=== PATIENT | male | born 1955 | race African-American/Black ===

== ENCOUNTER 2024-03-08 16:47 | Emergency (ER) | payer OTHER, SELFPAY ==
--- NOTE | ~2024-03-08 | CT_ITS ---
CLINICAL HISTORY: left flank pain CT abdomen and pelvis without contrast Comparison: CT/CA/SR - ABD PELVIS WO CONT [id number] - 07/21/19 11:48 EDT Findings: The lung bases are clear. Left parapelvic renal cysts. Cholecystectomy. Abdominal solid organs otherwise unremarkable. No urolithiasis. No bowel obstruction, pneumoperitoneum, or pneumatosis. Moderate stool. Normal appendix. No acute fracture. Degenerative changes at L4-5 results in severe spinal canal stenosis and moderate to severe bilateral foraminal stenosis. IMPRESSION: No acute findings. This document has been electronically signed by: Luis Hicks MD on 03/08/2024 21:24:30
[2024-03-08 16:55] VITALS: BP 177/82; PULSE 75; RESP 16; TEMP 36.6; O2SAT 100; BMI 31.9
--- NOTE | 2024-03-08 16:56 | ED_ITS ---
HPI - General Adult General Chief complaint: Abdominal Pain Stated complaint: Left side pain Time Seen by Provider: 03/08/24 19:59 Source: patient Limitations: no limitations History of Present Illness ED Provider: Brittany Cameron PA-C HPI narrative: 69-year-old otherwise healthy male presents with left flank pain x1 week. Pain originates over left lower flank and low back and radiates around to left lower quadrant and groin region. Pain describes as cramping the fluctuates in intensity. Pain worse with movement. Denies dysuria, hematuria or history of kidney stones. Denies diarrhea nausea vomiting. Denies radiation pain down the lower extremity, weakness of lower extremity, paresthesia, urinary retention or bowel incontinence. Related Data Previous Rx's ?Medication ?Instructions ?Recorded meloxicam 15 mg tablet 15 mg PO DAILY #7 tabs 03/08/24 Allergies Allergy/AdvReac Type Severity Reaction Status Date / Time No Known Allergies Allergy Verified 03/08/24 16:57 [No Known Allergies*] Review of Systems 2 Review of Systems: Yes all other systems are reviewed and are negative Constitutional: Constitutional: Denies fatigue and Denies fever(s) Cardiovascular: Cardiovascular: Denies chest pain and Denies dyspnea Respiratory: Respiratory: Denies cough and Denies dyspnea Gastrointestinal: Gastrointestinal: Reports abdominal pain, Reports GI cramping, Denies diarrhea, Denies nausea and Denies vomiting Genitourinary: Genitourinary: Denies hematuria, Denies dysuria and Reports flank pain Musculoskeletal: Musculoskeletal: Reports back pain, Denies numbness, Denies radiating pain into limb and Denies tingling Neurologic: Denies numbness and Denies tingling Endocrine: Endocrine: Denies fatigue [facility] Past Medical History Attestation statement: The following information was validated with the patient. Social History Social History Advance Directives: No Advance Directives Information Provided: Yes Physical Exam ED Vital Signs: Vital Signs - 24 hr 03/08/24 16:55 03/08/24 20:43 Temperature 97.9 F 97.9 F Pulse Rate 75 59 Respiratory Rate 16 18 Blood Pressure 177/82 H 174/85 H Pulse Oximetry 100 97 Oxygen Delivery Method Room Air Room Air BMI result Body Mass Index 31.9 Const Other: Alert well-appearing Orientation/consciousness: patient oriented x3 Resp Effort & Inspection: normal respiratory effort Cardio Other: Normal peripheral perfusion GI Other: Abdomen is soft, nondistended nontender no guarding, very mild tenderness elicited with deep palpation within left groin Back/Spine/Pelvis Other: No CVA tenderness Skin Other: Warm dry no rash Neuro General: patient oriented x3, gait normal, no focal motor deficits and CN's II- XI intact bilaterally Extrem Other: Strength 5/5 bilateral lower extremities with resistance Psych Other: Cooperative Course Course Course Narrative: RME, this is a rapid medical exam performed by Anthony Loomis please refer to primary provider for complete H&P- 69-year-old male presents for evaluation of left lower abdominal pain. He denies associated symptoms with the exception of intermittent diarrhea. Denies any blood in the stool. Plan for labs and urinalysis Medications Administered Discontinued Medications Generic Name Dose Route Start Last Admin Trade Name Freq PRN Reason Stop Dose Admin Ketorolac Tromethamine 15 mg 03/08/24 20:38 03/08/24 21:28 Ketorolac Tromethamine 15 Mg/Ml Vial IM 03/08/24 20:39 15 mg ONCE ONE Administration Medical Decision Making Medical Decision Making [facility] Narrative: 69-year-old otherwise healthy male presents with left flank pain x1 week. Pain originates over left lower flank and low back and radiates around to left lower quadrant and groin region. Pain describes as cramping the fluctuates in intensity. Pain worse with movement. Denies dysuria, hematuria or history of kidney stones. Denies diarrhea nausea vomiting. Denies radiation pain down the lower extremity, weakness of lower extremity, paresthesia, urinary retention or bowel incontinence. No known chronic issues History: Per patient I have considered the following differential diagnoses: Renal colic, pyelonephritis, UTI, diverticulitis, low back strain, cauda equina Plan: Given distribution of discomfort, it is suspicious the patient could be passing a kidney stone. It is odd that he has no active symptoms. Urine just was collected, obtaining a CT scan giving Toradol. Given pain worse with movement, I am considering low back strain without radicular symptoms. To note he has no red flag signs symptoms concerning for cord compression. Thought about pyelonephritis, however no CVA tenderness, he is afebrile and he has no related symptoms. Thought about diverticulitis, however he has no active GI symptoms, his exam was overall benign. I have independently reviewed the following tests: Labs: No leukocytosis, not anemic, no electrolyte abnormality, urine not infected CT abdomen and pelvis:Normal appendix. No acute fracture. Degenerative changes at L4-5 results in severe spinal canal stenosis and moderate to severe bilateral foraminal stenosis. IMPRESSION: No acute findings. This document has been electronically signed by: Luis Hicks MD on 03/08/2024 21:24:30 Lab Data 03/08/24 17:08 03/08/24 17:08 Labs: Lab Results 03/08/24 03/08/24 Range/Units 17:08 20:27 WBC 6.7 (4.8-10.8) X10*3/uL RBC 6.16 H (4.60-5.80) X10*6/uL Hgb 13.9 L (14.0-18.0) g/dl Hct 44.2 (42.0-52.0) % MCV 71.8 L (80.0-98.0) fL MCH 22.6 L (27.0-33.0) pg MCHC 31.4 (31.0-36.0) g/dl RDW 15.4 (11.0-16.0) % Plt Count 322 (160-400) X10*3/uL MPV 9.0 L (9.4-12.4) fL Immature Gran % (Auto) 0.1 (0.0-0.4) % Neut % (Auto) 38.8 L (45-73) % Lymph % (Auto) 42.3 H (20-40) % [place] % (Auto) 15.4 H (2-11) % Eos % (Auto) 2.7 (0-4) % Baso % (Auto) 0.7 (0-2) % Lymph # (Auto) 2.8 (1.2-4.9) X10*3/uL [place] # (Auto) 1.0 (0.1-1.2) X10*3/uL Eos # (Auto) 0.2 (0.0-0.4) X10*3/uL Baso # (Auto) 0.1 (0.0-0.2) X10*3/uL Abs Immat Gran (auto) 0.01 (0.00-0.03) X10*3/uL Absolute Neuts (auto) 2.6 (2.0-8.3) x10*3/uL Absolute Nucleated RBC 0.000 (0.0-0.012) X10*3/uL Nucleated RBC % (auto) 0.0 (0.0-0.2) /100WBC Sodium 140 (135-145) mmol/L Potassium 4.0 (3.3-5.1) mmol/L Chloride 107 (96-108) mmol/L Carbon Dioxide 26 (22-29) mmol/L Anion Gap 11 L (12-20) BUN 20 H (9-16) mg/dL Creatinine 1.38 (0.5-1.4) mg/dL Estim Creat Clear Calc 69.2 Estimated GFR 51 Random Glucose 86 (60-115) mg/dL Calcium 9.3 (8.4-10.2) mg/dL Total Bilirubin 0.6 (0.0-1.0) mg/dL AST 28 (5-37) U/L ALT 21 (0-40) U/L Alkaline Phosphatase 58 (39-117) U/L Total Protein 8.0 (6.5-8.0) g/dL Albumin 4.0 (3.5-5.0) g/dL Lipase 26 (8-78) U/L Urine Color Yellow Urine Appearance Clear Urine pH 5.5 (5.0-9.0) Ur Specific [place] 1.020 (1.005-1.025) Urine Protein Negative (Neg-Trace) mg/dL Urine Glucose (UA) Negative (Negative) mg/dL Urine Ketones Negative (Negative) mg/dL Urine Blood Negative (Negative) Urine Nitrite Negative (Negative) Ur Leukocyte Esterase Negative (Negative) Urine RBC 0-2 (0-2) /HPF Urine WBC 0-5 (0-5) /HPF Ur Squamous Epith Cells 0-2 (0-2) /HPF Urine Bacteria None Seen (None Seen) Hyaline Casts 0-2 (0-2) /LPF Discharge Plan Discharge Clinical Impression: Lumbar strain, Constipation Patient Disposition: Home, Self-Care Instructions: Constipation (ED), Low Back Strain (ED), Lower Back Exercises (ED) Additional Instructions: All of your screening labs were normal, the CT scan revealed that you have degenerative changes in your lower back, with some nerve root impingement. You were incidentally found to be constipated. See home care instructions. You can use post-auw-svnruzj Colace, this is a stool softener. You can also use brug-qke-xxnrwub MiraLax, 1 to 2 times a day, until you begin having regular bowel movements. Use the meloxicam as needed for your back discomfort. Follow up with your primary care provider as needed. Prescriptions: New meloxicam 15 mg tablet 15 mg PO DAILY Qty: 7 0RF Print Language: Cymro
[2024-03-08 17:11] LABS: MANUAL DIFF FLAG NO
[2024-03-08 17:16] LABS: Basophils Absolute Auto 0.1 X10*3/uL (0.0-0.2); Basophils Percent Auto 0.7 % (0-2); Eosinophils Absolute Auto 0.2 X10*3/uL (0.0-0.4); Eosinophils Percent Auto 2.7 % (0-4); Hematocrit 44.2 % (42.0-52.0); Hemoglobin 13.9 g/dl (14.0-18.0); Imm Gran Abs Auto 0.01 X10*3/uL (0.00-0.03); Imm Gran Pct Auto 0.1 % (0.0-0.4); Lymphocytes Absolute Auto 2.8 X10*3/uL (1.2-4.9); Lymphocytes Percent Auto 42.3 % (20-40); Mean Corpuscular HGB Conc 31.4 g/dl (31.0-36.0); Mean Corpuscular Hemoglobin 22.6 pg (27.0-33.0); Mean Corpuscular Volume 71.8 fL (80.0-98.0); Monocytes Percent Auto 15.4 % (2-11); Neutrophils Absolute Auto 2.6 x10*3/uL (2.0-8.3); Neutrophils Percent Auto 38.8 % (45-73); Platelet Count 322 X10*3/uL (160-400); Red Blood Count 6.16 X10*6/uL (4.60-5.80); Red Cell Distribution Width 15.4 % (11.0-16.0); White Blood Count 6.7 X10*3/uL (4.8-10.8)
[2024-03-08 17:43] LABS: Alanine Aminotransferase 21 U/L (0-40); Anion Gap 11 (12-20); Aspartate Amino Transferase 28 U/L (5-37); Bilirubin Total 0.6 mg/dL (0.0-1.0); Blood Urea Nitrogen 20 mg/dL (9-16); Calcium 9.3 mg/dL (8.4-10.2); Carbon Dioxide 26 mmol/L (22-29); Chloride 107 mmol/L (96-108); Creatinine Clr Calc Pharmacy 69.2; Estimated Glomerular Filt Rate 51; Glucose Random 86 mg/dL (60-115); Lipase 26 U/L (8-78); Sodium 140 mmol/L (135-145)
[2024-03-08 17:55] LABS: Alkaline Phosphatase 58 U/L (39-117)
--- OUTSIDE RECORDS SUMMARY | 2024-03-08 20:03 | XMS_ITS | Encounter Summary ---
Author Organization [facility] Address [address] [place] [address] Care Team Providers Care Textile Broker Name Role Phone Ken Mann MD Primary Care Provider [phone] Reason for Visit * Reason Onset Date Comments Flank Pain 03/08/2024 Encounter Details Date Type Department Care Team (Late st Contact Info) Description 03/08/2024 [facility] [address] [place] [address] Ken Mann MD [address] [place] [id number] Flank Pain Social History Tobacco Use Types Packs/Day Years Used Date Smoking Tobacco: Never Smokeless Tobacco: Never Alcohol Use Standard Drinks/Week Comments Yes 0 (1 standard drink = 0.6 oz pur e alcohol) Sex and Gender Information Value Date Recorded Sex Assigned at Not on file Gender Identity Not on file Sexual Orientation Not on file documented as of this encounter Progress Notes * Irena Rodgers RN - 03/08/2024 1:35 PM EST Spoke with pt he is c/o pain/discomfort/ left side of abd. x 1 week, area belly button and left hip.,pt describe pain as annoying, it is worse with sitting down. Area is tender to touch, no black or bloody stools. Pt c/o of having constipation at times no straining, have normal BM past couple of days, no fever or chills, no urinary sx, no blood in urine, stream of urine no change. Advised pt he needs to go to the ER for eval of sx, pt agrees and will go [facility] and advised to f/u after seen, pt agrees. * Lizy Jaimes - 03/08/2024 1:13 PM EST Patient call requires triage: Symptoms patient is presenting: left side pain, burning stabbing pain How long has patient had these symptoms?: 1 week For ALL patients calling to schedule any appointment (routine, sick visit, follow up, consult, etc.) in the outpatient setting please ask the following questions: Do you have fever of higher than 101, sore throat with difficulty swallowing or severe shortness ofbreath? no If YES to any of these above symptoms, send a message to triage and do not book. Red dot. If no, an audio or video visit should be booked. Have you had close contact with someone with Coronavirus in the last 14 days? no Have you traveled abroad? no Have you traveled recently to another state outside of [place], [place], [place], [place], [place], [place], [place]? no o If yes, did you quarantine for 14 days or have a negative covid test? no If yes to any of the above, patient is not to be scheduled in office until after 14 day quarantine or negative covid test. If pain or injury related was it due to an accident at work or from a motor vehicle accident? If yes, date of accident/Injury: No If yes, gather 3rd green party insurance information Third Democrat Information: not applicable PCP: Ken Mann MD Payor: / No coverage found. documented in this encounter Plan of Treatment Upcoming Encounters Date Type Department Care Team (Late st Contact Info) Description 09/04/2024 2:15 PM EDT Office Visit [facility]phrology - [facility] [address] [place] [phone] Young Callahan MD [address] [place] [address] documented as of this encounter Visit Diagnoses Not on filedocumented in this encounter Care Teams Textile Broker Relationship Specialty Start Date End Date Ken Mann MD [address] [place] [address] PCP - General Internal Medicine 01/12/17 documented as of this encounter
--- OUTSIDE RECORDS SUMMARY | 2024-03-08 20:03 | XMS_ITS | Clinical Summary ---
Author Organization [facility] Address [address] [place] [address] Care Team Providers Care Health Care Sanitary Technician Name Role Phone Ken Mann MD Primary Care Provider [phone] Encounters Date Type Department Care Team Description 03/08/2024 Telephone Internal Medicine - [facility] [address] [phone] Ken Mann MD Flank Pain from Last 3 Months Surgical History Surgery Date Site/Laterality Comments KNEE ARTHROSCOPY bilat. PROCEDURE: OK ARTHROSCOPY KNEE DIAGNOSTIC W/WO SYNOVIAL BX SPX OTHER SURGICAL HISTORY 01/2008 PROCEDURE: PROSTATE SPEC. AG, SCREEN; COMMENT: 0.3 FLEXIBLE SIGMOIDOSCOPY 09/2004 PROCEDURE: OK SIGMOIDOSCOPY FLX DX W/COLLJ SPEC BR/WA IF PFRMD; COMMENT: Luanne; neg COLONOSCOPY 06/14/2006 PROCEDURE: HISTORICAL COLONOSCOPY; COMMENT: normal; R 10 y OTHER SURGICAL HISTORY 08/23/2016 PROCEDURE: COLON CA SCRN NOT HI RSK IND; COMMENT: inflammatory polyp; repeat in 10 yrs OTHER SURGICAL HISTORY N/A PROCEDURE: HISTORY OTHER; COMMENT: cholecystectomy Medical History Medical History Date Comments Intestinal disaccharidase deficiencies and disaccharide malabsorption DX:Intestinal disaccharidase deficiencies and disaccharide malabsorption Anxiety state, unspecified 04/20/2005 DX:An xiety state, unspecified Depressive disorder, not els ewhere classified 04/20/2005 DX:Depressive disorder, not elsewhere classified Unspecified sleep apnea DX:Unspe cified sleep apnea Hematuria 01/25/2008 DX:Hematuria; CO MMENT: [place]; 05/15 W/U neg Essential (primary) hypertension DX:Essential (primary) hypertension Family History Medical History Relation Name Comments Diabetes Father Other cancer Father leukemia Stroke Father LATE 50 'S No Known Problems Maternal Grandfather No Known Problems Maternal Grandmother No Known Problems Mother No Known Problems Paternal Grandfather No Known Problems Paternal Grandmother Coronary artery disease Sister 1 Hyperlipidemia Sister 1 Hypertension Sister 1 age 65 /66 No Known Problems Sister 2 No Known Problems Son 1 Other: MVA Son 2 Blindness Uncle Cataracts Neg Hx Glaucoma Neg Hx Macular degeneration Neg Hx Strabismus Neg Hx Relation Name Status Comments Father Maternal Grandfather Maternal Grandmother Mother Paternal Grandfather Paternal Grandmother Sister 1 Sister 2 Alive Son 1 Alive Son 2 Uncle Social History Tobacco Use Types Packs/Day Years Used Date Smoking Tobacco: Never Smokeless Tobacco: Never Alcohol Use Standard Drinks/Week Comments Yes 0 (1 standard drink = 0.6 oz pur e alcohol) Sex and Gender Information Value Date Recorded Sex Assigned at Not on file Gender Identity Not on file Sexual Orientation Not on file Obstetrics History Last Filed Vital Signs Vital Sign Reading Time Taken Comments Blood Pressure 128/70 03/24/2023 8:48 AM EST Sit ting R Arm Pulse 66 03/24/2023 8:48 AM EST Temperature - - Respiratory Rate - - Oxygen Saturation - - Inhaled Oxygen Concentration - - Weight 117 kg (257 lb) 03/24/2023 8:48 AM EST Height 190.5 cm (6' 3 ) 03/24/2023 8:48 AM EST Body Mass Index 32.12 03/24/2023 8:48 AM EST Plan of Treatment Upcoming Encounters Date Type Department Care Team (Late st Contact Info) Description 09/04/2024 2:15 PM EDT Office Visit [facility]phrology - [facility] [address] [place] [address] Young Callahan MD [address] [place] [address] Health Maintenance Due Date Last Done Comments Zoster Vaccines (1 of 2) 2005 Cholesterol Screening (Lipid Panel) 01/16/2022 Colorectal Cancer Screening: Colonoscopy 01/16/2022 Depression Screening 01/16/2022 Falls Risk Assessment 01/16/2022 Hepatitis C Screening 01/16/2022 Social Influencers of Health Screening 01/16/2022 Hypertension/CHF/CAD Annual BMP Blood Test 01/17/2022 COVID-19 Vaccine (3 season) 2023 06/03/2020, 05/12/2020 Influenza Vaccine (#1) 2023 , 12/25/2018, 10/12/2017, Additional history exists DTaP,Tdap,and Td Vaccines (3 - Td or Tdap) 12/25/2028 12/25/2018, 02/23/2008 RSV Immunization Patients 60+ Years Old (1 - 1-dose 75+ series) 2030 Pneumococcal Vaccine: 65+ Years Completed 11/10/2021, 08/21/2020 HIB Vaccines Aged Out No longer eligi ble based on patient's age to complete this topic HPV Vaccines Aged Out No longer eligi ble based on patient's age to complete this topic Hepatitis A Vaccines Aged Out No long er eligible based on patient's age to complete this topic Hepatitis B Vaccines Aged Out No long er eligible based on patient's age to complete this topic IPV Vaccines Aged Out No longer eligi ble based on patient's age to complete this topic MMR Vaccines Aged Out No longer eligi ble based on patient's age to complete this topic Meningococcal ACWY Vaccine Aged Out N o longer eligible based on patient's age to complete this topic RSV Immunization Patients Under 20 months Aged Out No longer eligible based on patient's age to complete this topic Varicella Vaccines Aged Out No longer eligible based on patient's age to complete this topic Care Teams Health Care Sanitary Technician Relationship Specialty Start Date End Date Ken Mann MD [address] [place] [id number] PCP - General Internal Medicine 01/12/17
[2024-03-08 20:42] LABS: Appearance Urine Clear; Color Urine Yellow; Glucose Urine UA Negative (Negative); Leukocyte Esterase Urine Negative (Negative); Nitrite Urine Negative (Negative); PH 5.5 (5.0-9.0); Urine Blood Negative (Negative); Urine Ketones Negative (Negative); Urine Protein Negative (Neg-Trace)
[2024-03-08 20:43] VITALS: BP 174/85; PULSE 59; RESP 18; TEMP 36.6; O2SAT 97
[2024-03-08 21:01] LABS: Bacteria Urine None Seen (None Seen); Hyaline Casts Urine 0-2 /LPF (0-2); RBC Urine 0-2 /HPF (0-2); Squamous Epithelial Cell Urine 0-2 /HPF (0-2); WBC Urine 0-5 /HPF (0-5)
[2024-03-08] MEDS: Ketorolac Tromethamine 15 MG/ML VIAL IM (21:28)
[2024-03-08 22:57] VITALS: BP 174/85; PULSE 59; RESP 18; TEMP 36.6; O2SAT 97
== END 2024-03-08 22:58 | disposition home or self-care (01) ==
PROVIDERS: Physician Assistant; Emergency Provider Emergency Medicine
DX: K59.00 Constipation, unspecified (principal); S39.012A Strain of muscle, fascia and tendon of lower back, initial encounter; X58.XXXA Exposure to other specified factors, initial encounter; Y93.9 Activity, unspecified; Y92.9 Unspecified place or not applicable; Y99.9 Unspecified external cause status
CPT/HCPCS: 36415; 74176; 80053; 81001; 83690; 85025; 96372; 99283; 99284; J1885

== ENCOUNTER → 2024-03-08 20:38 | Outpatient (BNV) | payer OTHER, SELFPAY | PROVIDERS: Emergency Provider Emergency Medicine; Visit Provider Radiology Diagnostic Radiology | DX: R10.32 Left lower quadrant pain (principal) | CPT/HCPCS: 74176 ==